=== PATIENT | male | born 2000 | race Two or more races ===

== ENCOUNTER 2023-01-25 20:36 | Emergency (ER) | payer OTHER, SELFPAY ==
[2023-01-25] VITALS (12 sets, daily range): BP systolic 114–143; BP diastolic 64–82; PULSE 56–85; RESP 16; TEMP 36.9; O2SAT 97–100; BMI 24.8
--- NOTE | 2023-01-25 21:07 | CRLHL7_ITS ---
For Patients: As a result of the Century Cures Act, medical imaging exams and procedure reports are released immediately into your electronic medical record. You may view this report before your referring provider. If you have questions, please contact your health care provider. INDICATION: Left lower quadrant pain. TECHNIQUE: CT abdomen and pelvis acquired with 88 cc Isovue 370 IV contrast. COMPARISON: None. FINDINGS: Lower chest: Unremarkable. Liver: Unremarkable. Normal in size and attenuation. No suspicious masses. Gallbladder and bile ducts: Unremarkable. No stones or inflammation. No biliary dilatation. Pancreas: Unremarkable. No mass or inflammation. Spleen: Unremarkable. Normal in size. No masses. Adrenal glands: Unremarkable. No nodules. Kidneys: Bilateral extrarenal pelvis. No suspicious masses, stones, or hydronephrosis. GI tract: Unremarkable. Normal in caliber. No sign of mass or inflammation. Normal appendix. Vasculature: Abdominal aorta is normal in caliber. Mesenteric arteries are patent. Lymph nodes: No lymphadenopathy. Peritoneum/Abdominal Wall: Unremarkable. No sign of mass or infiltration. No free air or significant free fluid. Pelvis: Mildly distended bladder with circumferential wall thickening. Recommend correlation with urinalysis. Bones: Unremarkable for age. IMPRESSION: No acute intra-abdominal/pelvic abnormality. Please note that all CT scans at this facility use dose modulation, iterative reconstruction, and/or weight-based dosing when appropriate to reduce radiation dose to as low as reasonably achievable. Dictated by Juan Hester MD @ 01/25/2023 10:10:37 PM (Electronically Signed)
[2023-01-25 21:21] LABS: Appearance Urine Clear (Clear); Bilirubin Urine Negative (Negative); Blood Urine Negative (Negative); Color Urine Yellow (Yellow); Glucose Urine Negative (Negative); Ketones Urine Negative (Negative); Leukocyte Esterase Urine Negative (Negative); Nitrite Urine Negative (Negative); Protein Urine Negative (Negative); Urobilinogen Urine 0.2 (0.2-1.0); pH Urine 6.5 (5.0-8.5)
--- NOTE | 2023-01-25 21:21 | ED.ABDPAIN ---
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 His girlfriend has mononucleosis but he was tested at [facility] and found not have mononucleosis. He has had no fevers no chills but now has a diffuse lower abdominal pain. He has had mild anorexia but no nausea or vomiting no changes bowel or bladder. He has had no rashes no fevers no neck pain no headaches no changes vision or hearing. He has had no recent travel and no other sick contacts. Related Data Home Medications Medication Instructions Recorded Confirmed aripiprazole 15 mg tablet (Abilify) 15 mg PO DAILY 01/25/23 01/25/23 escitalopram oxalate 20 mg tablet 20 mg PO DAILY 01/25/23 01/25/23 (Lexapro) lithium aspartate 20 mg capsule 750 mg PO DAILY 01/25/23 01/25/23 Allergies Allergy/AdvReac Type Severity Reaction Status Date / Time No Known Drug Allergies Allergy Verified 01/25/23 21:47 Review of Systems Status of ROS Reports: 10 or more systems reviewed and unremarkable except as noted in History and below [facility] Social History Smoking Status: Current every day smoker What tobacco products do you use: cigarettes Smoking packs per day: 0.5 Smoking cigarettes per day: 10.0 Years smoked: 1 Smoking pack-years: 0.50 Do you use any of these nicotine containing products: None Second hand tobacco smoke exposure: No How often do you have a drink containing alcohol: never AUDIT-C Alcohol total score: 0 Non-prescribed substance use: denies use Exam Narrative: Exam Narrative: EXAM GENERAL: Patient appears comfortable and well. EYES: No scleral icterus. ENT: Tympanic membranes and oropharynx normal. THYROID: no thyroid nodules or thyromegaly. LYMPH: No supraclavicular or cervical lymphadenopathy. SKIN: Visible skin seen during exam normal or with benign process only. EXT: No dependent lower extremity pedal edema. HEART: Regular rate and rhythm with no murmurs, rubs, or gallops. LUNGS: Clear to auscultation bilaterally with no crackles or wheezes. ABD: Soft, non tender, non distended. PSYCH: Good eye contact, speech is not pressured. Const: Vital Signs, click to edit/add: Vital Signs - 24 hr 01/25/23 20:40 01/25/23 20:49 01/25/23 21:00 Temperature 98.4 F Pulse Rate 85 77 Pulse Rate [Pulse Oximeter] 67 Respiratory Rate 16 Blood Pressure Blood Pressure [Ri ght Upper Arm] 143/82 H Pulse Oximetry 99 100 97 Oxygen Delivery Me thod Room Air Room Air 01/25/23 21:02 01/25/23 21:27 Temperature Pulse Rate 75 61 Pulse Rate [Pulse Oximeter] Respiratory Rate Blood Pressure 114/78 Blood Pressure [Ri ght Upper Arm] Pulse Oximetry 98 99 Oxygen Delivery Me thod Course Course Hospital Course: Patient seen examined. Rapid strep viral testing CBC CMP amylase UA CT of the abdomen pelvis ordered. Vital Signs Vital signs: Initial Vital Signs Temperature 98.4 F 01/25/23 20:40 Temperature Source Temporal Artery Scan 01/25/23 20:40 Pulse Rate 67 01/25/23 20:40 Respiratory Rate 16 01/25/23 20:40 Blood Pressure 143/82 H 01/25/23 20:40 Blood Pressure Mean 102 01/25/23 20:40 Blood Pressure Position Sitting 01/25/23 20:40 Pulse Oximetry 99 01/25/23 20:40 Oxygen Delivery Method Room Air 01/25/23 20:40 Vital Signs Temperature 98.4 F 01/25/23 20:40 Pulse Rate 67 01/25/23 20:40 Respiratory Rate 16 01/25/23 20:40 Blood Pressure 143/82 H 01/25/23 20:40 Pulse Oximetry 99 01/25/23 20:40 Oxygen Delivery Method Room Air 01/25/23 20:40 Temperature 98.4 F 01/25/23 20:40 Pulse Rate 61 01/25/23 21:27 Respiratory Rate 16 01/25/23 20:40 Blood Pressure 114/78 01/25/23 21:02 Pulse Oximetry 99 01/25/23 21:27 Oxygen Delivery Method Room Air 01/25/23 20:49 MDM - Abdominal Pain MDM Narrative Medical decision making narrative: 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 He has body aches sore throat as well as abdominal pain. I did order CT of the abdomen pelvis which is normal. Urinalysis normal upon my review as is CBC CMP amylase. This time it I do think he does has a viral syndrome and needs to rotate Tylenol Motrin get plenty of rest drink plenty of fluids. I did give a L of normal saline. Reassures otherwise offered a primary care follow-up. Differential Diagnosis Differential diagnosis: Likely abdominal pain, acute appendicitis, calculus of kidney, constipation, diverticulitis, gastroenteritis, pancreatitis and small bowel obstruction Lab Data Labs: Lab Results 01/25/23 01/25/23 01/25/23 Range/Units 21:15 21:17 21:17 WBC 8.57 (4.50-11.00) K/uL RBC 5.33 (4.30-5.90) m/uL Hgb 15.7 (13.5-17.5) gm/dL Hct 46.1 (37.0-53.0) % MCV 87 (80-100) fL MCH 30 (26-34) pg MCHC 34 (32-36) gm/dL RDW Coeff of Soila 11.6 (11.5-15.5) % Plt Count 252 (140-440) K/uL Neut % (Auto) 57.4 (42.0-72.0) % Lymph % (Auto) 28.0 (20-44) % Hemphill % (Auto) 9.5 (0.0-11.0) % Eos % (Auto) 3.4 (0.0-7.0) % Baso % (Auto) 0.8 (0.0-3.0) % Neut # (Auto) 4.92 (1.7-7.0) K/uL Lymph # (Auto) 2.40 (0.90-2.90) K/uL Hemphill # (Auto) 0.80 (0.00-0.90) K/UL Eos # (Auto) 0.29 (0.00-0.50) K/uL Baso # (Auto) 0.07 (0.00-0.30) K/uL Sodium 138 (135-149) mmol/L Potassium 3.9 (3.6-5.1) mmol/L Chloride 103 (96-114) mmol/L Carbon Dioxide 30 (20-32) mmol/L BUN 21 (5-24) mg/dL Creatinine 1.2 (0.5-1.5) mg/dL Estimated Creat Clear 103.71 Estimated GFR 88 ml/min Glucose 112 (60-115) mg/dL Calcium 9.3 (8.4-10.6) mg/dL Total Bilirubin 0.3 (0.1-1.5) mg/dL AST 35 (12-35) U/L ALT 49 (4-50) U/L Alkaline Phosphatase 128 (40-150) U/L Total Protein 7.5 (6.0-8.3) g/dL Albumin 4.5 (3.3-5.0) g/dL Amylase 88 Cancelled (18-89) U/L Urine Color Yellow (Yellow) Urine Appearance Clear (Clear) Urine pH 6.5 (5.0-8.5) Ur Specific [place] 1.020 (1.000-1.030) Urine Protein Negative (Negative) Urine Glucose (UA) Negative (Negative) Urine Ketones Negative (Negative) Urine Blood Negative (Negative) Urine Nitrite Negative (Negative) Urine Bilirubin Negative (Negative) Urine Urobilinogen 0.2 (0.2-1.0) Ur Leukocyte Esterase Negative (Negative) SARS-CoV-2 (PCR) Negative SARS-CoV-2 (Negative) Influenza Type A (PCR) Negative PCR FLU A (Negative) Influenza Type B (PCR) Negative PCR FLU B (Negative) RSV (PCR) Negative PCR RSV (Negative) Group A Strep Rapid Cancelled Group A Strep DNA NOT DETECTED (Not Detectd) Discharge Plan Discharge Clinical Impression: Acute viral syndrome Patient Disposition: Home, Self-Care Condition: Stable Instructions: Viral Syndrome (ED) Additional Instructions: Tylenol Motrin Rest Fluids Primary care follow-up Activity Level: No Restrictions Discharge Diet: Regular Prescriptions: No Action lithium aspartate 20 mg capsule 750 mg PO DAILY escitalopram oxalate [Lexapro] 20 mg tablet 20 mg PO DAILY aripiprazole [Abilify] 15 mg tablet 15 mg PO DAILY Stand Alone Forms: MyHealth Info Instructions
[2023-01-25] MEDS: 0.9 % SODIUM CHLORIDE 1000 ml 1,000 ML IV (21:36)
[2023-01-25 21:45] LABS: Albumin* 4.5 g/dL (3.3-5.0); Chloride* 103 mmol/L (96-114)
[2023-01-25 21:46] LABS: Potassium* 3.9 mmol/L (3.6-5.1); Sodium* 138 mmol/L (135-149)
[2023-01-25 21:48] LABS: Amylase* 88 U/L (18-89); Bilirubin Total* 0.3 mg/dL (0.1-1.5); Carbon Dioxide* 30 mmol/L (20-32); Creatinine* 1.2 mg/dL (0.5-1.5); Est. Creatinine Clearance* 103.71; Estimated Glomerular Filt Rate 88 ml/min; Total Protein* 7.5 g/dL (6.0-8.3)
[2023-01-25 21:49] LABS: Alanine Aminotransferase* 49 U/L (4-50); Alkaline Phosphatase* 128 U/L (40-150); Aspartate Amino Transferase* 35 U/L (12-35); Blood Urea Nitrogen* 21 mg/dL (5-24); Calcium* 9.3 mg/dL (8.4-10.6); Glucose* 112 mg/dL (60-115)
[2023-01-25 21:51] LABS: Basophils Absolute Auto 0.07 K/uL (0.00-0.30); Basophils Percent Auto 0.8 % (0.0-3.0); Eosinophils Absolute Auto 0.29 K/uL (0.00-0.50); Eosinophils Percent Auto 3.4 % (0.0-7.0); Hematocrit 46.1 % (37.0-53.0); Hemoglobin* 15.7 gm/dL (13.5-17.5); Immature Granulocytes Abs Auto 0.08 K/uL (0.00-0.30); Immature Granulocytes Pct Auto 0.9 %; Mean Corpuscular HGB Conc 34 gm/dL (32-36); Mean Corpuscular Hemoglobin 30 pg (26-34); Mean Corpuscular Volume 87 fL (80-100); Monocytes Percent Auto 9.5 % (0.0-11.0); Neutrophils Absolute Auto 4.92 K/uL (1.7-7.0); Neutrophils Percent Auto 57.4 % (42.0-72.0); Platelet Count* 252 K/uL (140-440); RDW Coefficient of Variation % 11.6 % (11.5-15.5); Red Blood Count 5.33 m/uL (4.30-5.90); White Blood Count* 8.57 K/uL (4.50-11.00)
[2023-01-25 21:52] LABS: Slide Review Reflex No
[2023-01-25 22:01] LABS: Strep A DNA Probe* NOT DETECTED (Not Detectd)
[2023-01-25 22:11] LABS: PCR FLU A Negative PCR FLU A (Negative); PCR FLU B Negative PCR FLU B (Negative); PCR RSV Negative PCR RSV (Negative)
[2023-01-25 22:12] LABS: SARS PCR* Negative SARS-CoV-2 (Negative)
== END 2023-01-25 22:34 | disposition home or self-care (01) ==
PROVIDERS: Emergency Provider Internal Medicine; PCP Family Medicine
DX: B34.9 Viral infection, unspecified (principal)
CPT/HCPCS: 36415; 74177; 80053; 81003; 82150; 85025; 87631; 87651; 99283; 99284; J7030; Q9967

== ENCOUNTER 2024-08-10 13:45 | Outpatient (CLI) | payer OTHER, SELFPAY ==
--- OUTSIDE RECORDS SUMMARY | 2024-08-10 13:49 | XMS_ITS | Clinical Summary ---
Author Organization [facility] Address [place], [place] [address] Care Team Providers Care Director Of Front Office Name Role Phone Pcp, No Primary Care Provider Unavailabl e Allergies No known active allergies Medications Medication Sig Dispensed Refills Start Date End Date Status citalopram (CELEXA) 20 mg tablet Take 1 Tablet (20 mg) by mouth every morning. 0 06/29/2021 Active lithium carbonate (LITHOBID) 300 mg Controlled-Release tablet Takes 300mg & 450mg daily to make 750mg daily 0 06/29/2021 Active lithium carbonate (ESKALITH-CR) 450 mg Controlled-Release tablet Takes 300mg & 450mg daily to make 750mg daily 0 06/29/2021 Active ARIPiprazole (Abilify) 10 mg tablet Take 1.25 Tablets (12.5 mg) by mouth once daily. 0 07/06/2022 Active Active Problems Problem Noted Date Diagnosed Date Hallucinations 06/29/2021 Depression, major, in remission 06/29/2021 Overview (06/29/2021): With Hallucinations. Family History Medical History Relation Name Comments COPD Maternal Grandfather Other Maternal Grandmother muscula r disease Relation Name Status Comments Brother Alive Father Alive Maternal Grandfather Maternal Grandmother Mother Alive Social History Tobacco Use Types Packs/Day Years Used Date Smoking Tobacco: Never Smokeless Tobacco: Never Tobacco Cessation:Counseling Given: Yes Alcohol Use Standard Drinks/Week Comments Not Currently 0 (1 standard drink = 0.6 oz pur e alcohol) PHQ-2 Answer Date Recorded PHQ-2 TOTAL SCORE 0 06/29/2021 Social Connections Answer Date Recorded Frequency of Communication with Friends and Fami ly Not on file 10/21/2021 Financial Resource Strain Answer Date R ecorded Difficulty of Paying Living Expenses Not on file 10/21/2021 Difficulty of Paying Living Expenses Not on file 10/21/2021 Sex and Gender Information Value Date Recorded Sex Assigned at Not on file Gender Identity Not on file Sexual Orientation Not on file Obstetrics History Last Filed Vital Signs Vital Sign Reading Time Taken Comments Blood Pressure 107/66 06/29/2021 11:43 AM CDT Pulse 54 06/29/2021 11:43 AM CDT Temperature 36.7 ??C (98 ??F) 06/29/2021 11:43 AM CDT Respiratory Rate - - Oxygen Saturation 99% 06/29/2021 11:43 AM CDT Inhaled Oxygen Concentration - - Weight 80 kg (176 lb 6.4 oz) 06/29/2021 11:43 AM CDT Height 181.4 cm (5' 11.42) 06/29/2021 11:43 AM CDT Body Mass Index 24.32 06/29/2021 11:43 AM CDT Plan of Treatment Health Maintenance Due Date Last Done Comments Tdap 02/22/2012 HIV for age 15-65 02/22/2016 HPV series for age 9-26 (1 - Male 3-dose series) 02/22/2016 Hepatitis C screening for ag e 18-79 2019 Tetanus booster 2021 BMI (ht and wt on same day) for age 18+ 06/29/2022 06/29/2021 Depression screening for age 12+ 06/30/2022 06/30/2021, 06/30/2021, 06/29/2021 COVID-19 vaccine series ( season) 2024 01/27/2022, 06/28/2021 Influenza for age 9-49 06/21/2024 Pneumococcal series for age 6-64 Aged Out No longer eligible b ased on patient's age to complete this topic Care Teams Director Of Front Office Relationship Specialty Start Date End Date Pcp, No . PCP - General 06/29/21
== END 2024-08-10 13:46 | disposition home or self-care (01) ==
PROVIDERS: PCP Family Medicine; Visit Provider Family Medicine
DX: R32 Unspecified urinary incontinence (principal); R63.1 Polydipsia; F32.9 Major depressive disorder, single episode, unspecified
CPT/HCPCS: 80053; 80178